=== PATIENT | female | born 1975 ===

== ENCOUNTER 2021-11-04 11:01 | Emergency (ER) | payer OTHER ==
[~2021-11-04] VITALS: Ht 152.4 cm; Wt 76.2 kg
[2021-11-04] MEDS ORDERED: SYNTHROID100 MCG PO (11:30)
[2021-11-04] MEDS ORDERED: TUSNEL LIQUID178 ML PO (15:17)
[2021-11-04] MEDS ORDERED: MEDROLPACK PO (15:17)
[2021-11-04] MEDS ORDERED: DOLOGEN 325-11 EACH PO (15:17)
== END 2021-11-04 16:08 | disposition home or self-care (01) ==
LOC: ER 11:01
DX: U07.1 COVID-19 (principal); J06.9 Acute upper respiratory infection, unspecified